=== PATIENT | male | born 1975 | race Caucasian/White ===

== ENCOUNTER 2018-04-06 02:57 | Emergency (ER) | payer MEDICARE, MEDICAID ==
[~2018-04-06] VITALS: Ht 172.7 cm; Wt 115.5 kg
[2018-04-06 03:03] VITALS: BP 147/99
[2018-04-06] MEDS ORDERED: CLIN150C8 PO (03:47)
== END 2018-04-06 03:53 | disposition home or self-care (01) ==
LOC: ER 02:58
DX: R21 Rash and other nonspecific skin eruption (principal); Z88.8 Allergy status to other drugs, medicaments and biological substances; Z79.2 Long term (current) use of antibiotics
CPT/HCPCS: 99283